=== PATIENT | male | born 1980 | race African-American/Black ===

== ENCOUNTER 2020-04-18 01:14 | Emergency (ER) | payer OTHER ==
[~2020-04-18] VITALS: Ht 177.8 cm; Wt 105.6 kg
[2020-04-18] MEDS ORDERED: GLUCAGON 1 MG ONE (02:26)
[2020-04-18] MEDS ORDERED: GLUCAGON 1 MG IVPush ONE (02:30)
--- NOTE | 2020-04-18 03:12 | NUR ---
Break RN: patient given Glucagon, unsuccessful. still unable to swallow/ spitting saliva.
[2020-04-18] MEDS ORDERED: PROPOFOL 10 MG/ML, 20ML ONE (04:07)
--- NOTE | 2020-04-18 04:29 | NUR ---
assumed care of pt from franchesca luong. applied cardiac, bp and pulse ox with etco2 monitors. pt signed consent and dr ayon medicating pt now for endoscopy.
[2020-04-18] MEDS ORDERED: PROPOFOL 10 MG/ML, 20ML IVPush ONE (04:30)
--- NOTE | 2020-04-18 04:33 | NUR ---
fb removed by dr parker - pt tolerated well. sleeping, side rails up x 2.
--- NOTE | 2020-04-18 04:43 | NUR ---
pt waking up. pt informed of procedure and repositioned
[2020-04-18 04:53] VITALS: BP 105/59
--- NOTE | 2020-04-18 05:00 | NUR ---
bs report back to ag sorensen. pt sleeping, rr even, side rails and call light with pt. vss, etco2 @32
== END 2020-04-18 06:30 | disposition home or self-care (01) ==
LOC: ED 05:40
DX: T18.128A Food in esophagus causing other injury, initial encounter (principal); Z87.891 Personal history of nicotine dependence; X58.XXXA Exposure to other specified factors, initial encounter; Y93.89 Activity, other specified; Y92.89 Other specified places as the place of occurrence of the external cause; Y99.8 Other external cause status
CPT/HCPCS: 43247; 88305; 88312; 96374; 99152; 99285; J1610